=== PATIENT | female | born 1980 | race Caucasian/White ===

== ENCOUNTER 2016-04-24 22:09 | Emergency (ER) | payer OTHER ==
[~2016-04-24] VITALS: Ht 167.6 cm; Wt 59.0 kg
[~2016-04-24 22:09] MED LIST: AMPH10TA4; HYDR1TAB; NAPR25PO2
[2016-04-24 22:15] VITALS: BP 102/65
== END 2016-04-24 22:56 | disposition home or self-care (01) ==
LOC: ER 22:09
DX: L01.00 Impetigo, unspecified (principal); K12.0 Recurrent oral aphthae; M79.9 Soft tissue disorder, unspecified; Z88.0 Allergy status to penicillin; M54.2 Cervicalgia; M54.5 Low back pain; G89.29 Other chronic pain; R79.89 Other specified abnormal findings of blood chemistry; Z72.0 Tobacco use
CPT/HCPCS: 82962; 99283; A4606; Z7610